=== PATIENT | male | born 1940 | race Caucasian/White ===

== ENCOUNTER → 2019-12-13 08:35 | Outpatient (BNVA) | payer MEDICARE, SELFPAY | PROVIDERS: Family Provider Family Medicine; PCP Family Medicine; Visit Provider Urology | DX: R33.9 Retention of urine, unspecified (principal); I71.9 Aortic aneurysm of unspecified site, without rupture; N28.89 Other specified disorders of kidney and ureter | CPT/HCPCS: 81001 ==

== ENCOUNTER 2019-12-22 14:38 | Outpatient (CLI) | payer MEDICARE, SELFPAY ==
--- NOTE | 2019-12-22 15:00 | CT_ITS ---
WS: [id number] CT scan of the abdominal aorta. Additional two-dimensional coronal and sagittal reconstruction was pe rformed. MIP images were also performed. 12/22/2019 Clinical Data: aaa Comparison: CT abdomen and pelvis, 11/15/2019. DLP: 1638.[address] scans at [facility] use at least one of these dose optimization techniques: automat ed exposure control; mA and/or kV adjustment per patient size (includes targeted exams where dose is matched to clinical indication); or iterative reconstruction. Findings: The lower lungs show no nodules, masses or effusions. There is a small hiatal hernia. The liver, sple en, gallbladder, adrenal glands and pancreas are normal. There is a collection of mesenteric fat in t he central abdomen which is probably benign and does not appear to be inflammatory. The kidneys show bilateral contrast excretion with multiple bilateral simple cysts. There is an enhancing mass in the inferior pole of the left kidney measuring 3.9 cm suspicious for renal cell cancer. Abdominal aorta s hows an aneurysm which measures 4.5 x 4.4 x 8.6 cm in AP, transverse and longitudinal dimension respe ctively. There is a large amount of mural thrombus within the aneurysm. The stomach, small bowel and colon are not remarkable. No diverticulitis or appendicitis can be seen. The right common iliac arter y is occluded. No abscess, adenopathy, ascites, obstruction or free air is seen. Bladder shows a thic k wall but no intraluminal abnormalities are seen. Prostate is enlarged with calcifications. There is a small fat-containing left inguinal hernia. Degenerative change of the lower thoracic and all lumba r vertebral bodies is severe. CT/CT angio abdomen pelvis [id number] Impression: 1. Abdominal aortic aneurysm with greatest AP diameter 4.5 cm. 2. Enhancing mass in the inferior pole left kidney which may represent renal ce ll cancer. 3. Small hiatal hernia, occluded right common iliac artery and incidental bladd er wall thickening.
[2019-12-22 15:20] LABS: Blood Urea Nitrogen 11 mg/dL (8-23)
[2019-12-22] MEDS: iohexol 350 mg/mL 100 mL Btl IV (15:54)
== END 2019-12-22 14:39 | disposition home or self-care (01) ==
LOC: RADWPI 14:44
PROVIDERS: Family Provider Family Medicine; PCP Family Medicine; Visit Provider Thoracic Surgery (Cardiothoracic Vascular Surgery)
DX: I71.4 Abdominal aortic aneurysm, without rupture (principal); N28.89 Other specified disorders of kidney and ureter; K44.9 Diaphragmatic hernia without obstruction or gangrene
CPT/HCPCS: 74174; 82565; 84520; Q9967

== ENCOUNTER 2020-06-14 13:35 | Outpatient (CLI) | payer MEDICARE, SELFPAY ==
--- NOTE | 2020-06-14 13:30 | US_ITS ---
WS: [id number] RENAL ULTRASOUND HISTORY: RENAL MASS/CARCINOMA COMPARISON: 12/22/2019 TECHNIQUE: 2-D and color Doppler imaging of the kidney submitted. Right kidney: 12.7 cm x 6.0 cm x 6.9 cm. Normal size kidney with multiple cortical cysts. Largest cyst measures 2.3 x 1.8 x 2.2 cm. No obstruc tion or solid mass. Left kidney: 14.9 cm x 5.3 cm x 7.7 cm. Normal size kidney. No obstruction. There are several cortical cysts with the largest in the lower po le measuring 2.5 x 1.9 x 2.8 cm. There is an additional solid mass with increased peripheral vascular ity exophytic from the lower pole measuring 3.8 x 3.5 x 3.6 cm. This mass was described on a prior CT of 12/22/2019. Aorta: Mild aneurysmal dilatation of aorta. Maximum diameter of 4.7 cm. Very similar to the prior adore dy. Urinary Bladder: Minimally distended bladder. US/US renal BI* [id number] IMPRESSION: 1. No significant increase in size of the solid mass lower pole LEFT kidney gabriel spicious for renal cell neoplasm. 2. Bilateral renal cysts. 3. Infrarenal abdominal aortic aneurysm with a maximum diameter 4.7 cm. No sig nificant increase since 12/22/2019.
== END 2020-06-14 13:36 | disposition home or self-care (01) ==
PROVIDERS: PCP Family Medicine; Visit Provider Urology
DX: C64.9 Malignant neoplasm of unspecified kidney, except renal pelvis (principal); N28.89 Other specified disorders of kidney and ureter; Q61.02 Congenital multiple renal cysts; I71.4 Abdominal aortic aneurysm, without rupture
CPT/HCPCS: 76770

== ENCOUNTER 2020-09-26 13:45 | Outpatient (CLI) | payer MEDICARE, SELFPAY ==
--- NOTE | 2020-09-26 13:56 | USCV_ITS ---
Festus Saeed Age: 80 Gender: M : 1940 Exam Date: 09/26/2020 14:20 Ordering Phys: Dane Turpin MD (Andy) ([email or web address] [place] Technologist: Erma Benítez Exam Location: [facility] [place] Indication: KNOWN AAA HISTORY: Known AAA recheck Diameter (cm) AP x Transverse x Length Velocity (cm/s) Waveform Prox Aorta: 2.22 x 2.18 x 59.10 Mid Aorta: 2.78 x 2.60 x 237.60 Distal Aorta: 5.17 x 4.71 x 7.85 85.10 Right Iliac Prox: x x Left Iliac Prox: x x 195.10 Stent Prox Landing x x Aneurysmal Sac Max x x Lt Lat Sac Dim Rt Lat Sac Dim Stent Dist Landing x x Right Iliac Stent x x Left Iliac Stent x x Right Renal Art Left Renal Art FINDINGS: Technically difficult study. The mid aorta was measuring 2.78 x 2.6 cm in diameter. The infrarenal aorta was measuring 5.17 x 4.71 cm in diameter. The velocity in the left proximal common iliac artery was found to be elevated at 195 cm/s. CONCLUSIONS 1. Infrarenal abdominal aortic aneurysm measuring 5.17 x 4.71 cm in diameter 2. Elevated velocity in the left proximal common iliac artery suggesting greater than 50% stenosis. 3. Technically difficult study because of the poor ultrasonic window Compared to the study from 09/24/2017, there is increase in size of the aneurysm Consider CTA, to better evaluate the aneurysm, if clinically indicated Dr Maude Holden MD [facility] (Electronically Signed) Final Date: 27 Sep 2020 23:59 S
--- NOTE | 2020-09-26 13:59 | USCV_ITS ---
Festus Saeed Age: 80 Gender: M : 1940 Exam Date: 09/26/2020 14:05 Ordering Phys: Dane Turpin MD (Andy) ([email or web address] [place]) Technologist: Erma Benítez [place] [facility] [place]ication: RECHECK ON CCA STENOSIS Risk Factors: Unknown Previous Vascular Surgery: None Right Brachial BP: / Left Brachial BP: / Right Left Velocity (cm/s) Spectral Plaque Velocity (cm/s) Spectral Plaque Syst/Diast Broadening Syst/Diast Broadening 130.10/25.40 Prox CCA 93.80 / 19.60 84.90/ 20.90 Mid CCA 73.30 / 16.50 77.20/ 18.70 Distal CCA 66.00 / 18.30 161.60/39.70 Hetro Prox ICA 75.10 / 22.90 Hetro 163.00/29.90 Hetro Mid ICA 80.60 / 23.80 Hetro 85.80/ 16.90 Distal ICA 74.20 / 23.80 179.90 Hetro ECA 136.00 Hetro 1.92 ICA/CCA 1.10 Antegrade Vertebral Antegrade 32.00/ 8.30 cm/s 31.10/ 6.60 cm/s Tri Subclavian Bi 118.9 148.5 0 0 FINDINGS Moderate to heavy dense irregular plaques at the right bifurcation and proximal to mid internal carotid artery Moderate dense plaques at the left bifurcation and proximal internal carotid artery. Antegrade flow in the vertebral arteries bilaterally. Normal Doppler of flow velocities in the subclavian arteries bilaterally CONCLUSIONS ForModerate to heavy dense irregular plaques at the right bifurcation and proximal to mid internal carotid artery with Doppler features suggesting 50- 69% stenosis. Moderate dense plaques at the left bifurcation and proximal internal carotid artery with the Doppler features suggesting less than 50% stenosis. Intimal thickening in the common carotid arteries bilaterally Dr Maude Holden MD [facility] (Electronically Signed) Final Date: 28 Sep 2020 00:20 S
== END 2020-09-26 13:46 | disposition home or self-care (01) ==
PROVIDERS: PCP Family Medicine; Visit Provider Thoracic Surgery (Cardiothoracic Vascular Surgery)
DX: I71.4 Abdominal aortic aneurysm, without rupture (principal); I65.23 Occlusion and stenosis of bilateral carotid arteries
CPT/HCPCS: 93880; 93978

== ENCOUNTER 2020-12-12 10:42 | Outpatient (CLI) | payer MEDICARE, SELFPAY ==
--- NOTE | 2020-12-12 10:46 | US_ITS ---
WS: [id number] RENAL ULTRASOUND HISTORY: RENAL MASS COMPARISON: 12/22/2019 and 06/14/2020 TECHNIQUE: 2-D and color Doppler imaging of the kidney submitted. Right kidney: 12.9 cm x 6.0 cm x 7.2 cm. Normal size kidney. Increased fat in the renal sinus. Multiple cortical cysts. No solid mass. Largest cyst inferior pole measures 3.0 x 2.2 x 2.1 cm. Left kidney: 13.6 cm x 6.4 cm x 7.5 cm. Normal size kidney with multiple cysts. Solid mass exophytic from the lower pole measures 4.7 x 2.8 x 4.5 cm. This is a solid mass with mild peripheral increased vascularity. This mass has slightly incr eased in size since the prior study. Aorta: Abdominal aortic aneurysm measures 4.6 x 5.0 cm. Similar in appearance to the prior examinatio n. Urinary Bladder: Moderately distended urinary bladder with diffusely thickened wall. Prostate gland i s enlarged measuring 4.8 x 4.0 x 4.7 cm. US/US renal BI* [id number] IMPRESSION: 1. Solid mass lower pole LEFT kidney has slightly increased in size since the prior study. Mass now measures 4.8 x 4.0 x 4.7 cm. This is for renal cell neopl asm. 2. Abdominal aortic aneurysm with a maximum diameter 5.0 cm is not significant ly changed. 3. Prostate enlargement with bladder wall hypertrophy. 4. Additional bilateral renal cysts.
[2020-12-12 11:58] LABS: Basophils % 0.6 %; Eosinophils # 0.2 10^3/uL (0.0-0.8); Eosinophils % 6.7 %; Hematocrit 42.6 % (42.0-52.0); Hemoglobin 14.4 g/dL (11.7-16.6); Lymphocytes # 1.2 10^3/uL (0.8-4.8); Lymphocytes % 37.9 %; Mean Corpuscular HGB Conc 33.8 g/dL (30.0-36.0); Mean Corpuscular Hemoglobin 31.9 pg (28.0-34.0); Mean Corpuscular Volume 94.2 fL (80-94); Mean Platelet Volume 9.8 fL (7.4-10.4); Monocytes # 0.6 10^3/uL (0.2-0.9); Monocytes % 20.1 %; Neutrophils # 1.08 10^3/uL (1.8-7.7); Neutrophils % 34.4 %; Nucleated Red Blood Cells % 0 %; Platelet Count 203 10^3/cmm (130-400); Red Blood Count 4.52 10^6/uL (4.1-5.3); Red Cell Distribution Width 15.4 % (12.1-15.1); White Blood Count 3.1 10^3/uL (4.0-10.0)
[2020-12-12 12:31] LABS: Alanine Aminotransferase 15 U/L (0-41); Albumin Level 3.8 g/dL (3.5-5.2); Alkaline Phosphatase 76 IU/L (40-130); Anion Gap 13.1 (5-19); Aspartate Amino Transferase 18 U/L (0-40); Blood Urea Nitrogen 10 mg/dL (8-23); Calcium 8.6 mg/dL (8.5-10.5); Carbon Dioxide 22 mmol/L (22-29); Chloride 104 mmol/L (98-107); Globulin 2.4 g/dL (1.3-4.6); Glucose 109 mg/dL (65-115); Osmolality Calculated 280 mOsm/kg (285-295); Potassium 4.1 mmol/L (3.5-5.1); Sodium 135 mmol/L (136-145); Total Bilirubin 0.3 mg/dL (0.15-1.2); Total Protein 6.2 g/dL (6.6-8.7)
== END 2020-12-12 10:43 | disposition home or self-care (01) ==
LOC: US 10:43
PROVIDERS: PCP Family Medicine; Visit Provider Urology
DX: N28.89 Other specified disorders of kidney and ureter (principal); Q61.02 Congenital multiple renal cysts; N40.0 Benign prostatic hyperplasia without lower urinary tract symptoms; I71.4 Abdominal aortic aneurysm, without rupture; C64.9 Malignant neoplasm of unspecified kidney, except renal pelvis
CPT/HCPCS: 76770; 80053; 81003; 85025

== ENCOUNTER 2021-03-23 13:05 | Outpatient (CLI) | payer MEDICARE, SELFPAY ==
--- NOTE | 2021-03-23 13:30 | USCV_ITS ---
Festus Saeed Age: 81 Gender: M : 1940 Exam Date: 03/23/2021 13:18 Ordering Phys: Dane Turpin MD (Andy) ([email or web address]) Technologist: ROBERTO Exam Location: [facility] [place] Indication: ABDOMINAL AORTIC ANEURYSM, WITHOUT RUPTURE HISTORY: Diameter (cm) AP x Transverse x Length Velocity (cm/s) Waveform Prox Aorta: 2.90 x 2.66 x 30.80 Mid Aorta: 2.68 x 2.72 x 68.40 Distal Aorta: 4.87 x 4.57 x 35.40 Right Iliac Prox: 1.19 x 1.58 x 43.10 Left Iliac Prox: 1.27 x 1.21 x 144.30 Stent Prox Landing x x Aneurysmal Sac Max x x Lt Lat Sac Dim Rt Lat Sac Dim Stent Dist Landing x x Right Iliac Stent x x Left Iliac Stent x x Right Renal Art Left Renal Art FINDINGS: TDS DUE TO BODY HABITUS AND BOWEL GAS Fusiform dilatation of the infrarenal abdominal aorta Technically difficult study because of the poor ultrasonic window. CONCLUSIONS 1. Fusiform aneurysm of the infrarenal abdominal aorta measuring 4.87 x 4.57 cm. 2. Ectatic proximal common iliac arteries bilaterally 3 . Study is suboptimal because of the poor ultrasonic window. Dr Maude Holden MD [facility] (Electronically Signed) Final Date: 23 March 2021 21:06 S
== END 2021-03-23 13:06 | disposition home or self-care (01) ==
PROVIDERS: PCP Family Medicine; Visit Provider Thoracic Surgery (Cardiothoracic Vascular Surgery)
DX: I71.4 Abdominal aortic aneurysm, without rupture (principal)
CPT/HCPCS: 93978